=== PATIENT | male | born 1940 | race African-American/Black ===

== ENCOUNTER 2024-10-19 09:29 | Outpatient (CLI) | payer MEDICARE | END 2024-10-19 09:30 | disposition home or self-care (01) | LOC: RAD 09:29 | PROVIDERS: ATTEND Specialist | DX: I69.391 Dysphagia following cerebral infarction (principal); R13.10 Dysphagia, unspecified; J38.3 Other diseases of vocal cords | CPT/HCPCS: 74230 ==